=== PATIENT | female | born 1990 | race Caucasian/White ===

== ENCOUNTER → 2018-06-25 | Outpatient (REF) | payer OTHER | LOC: M SFHCLERA 18:43 | PROVIDERS: ATTEND Nurse Practitioner Family | DX: Z53.9 Procedure and treatment not carried out, unspecified reason (principal); Z3A.11 11 weeks gestation of pregnancy ==

== ENCOUNTER → 2019-03-27 | Outpatient (REF) | payer OTHER, MEDICAID | LOC: M SFHCLERA 13:04 | PROVIDERS: ATTEND Physician Assistant | DX: J02.9 Acute pharyngitis, unspecified (principal) ==